=== PATIENT | male | born 1960 | race Caucasian/White ===

== ENCOUNTER 2017-03-17 11:40 | Inpatient (IN) | payer OTHER ==
[~2017-03-17] VITALS: Ht 180.3 cm; Wt 129.0 kg
[2017-03-17 12:24] LABS: BASOPHIL COUNT 0.1 K/uL (0-0.1); EOSINOPHIL (%) 0.8 % (0-5); EOSINOPHIL COUNT 0.1 K/uL (0-0.3); IMMATURE GRANULOCYTE (%) 0.6 % (0.0-0.7); IMMATURE GRANULOCYTE COUNT 0.1 K/uL; INSTRUMENT ABS NEUTROPHIL CT 8.7 K/uL; LYMPHOCYTE COUNT 1.3 K/uL (1.0-2.8); MCH 30.1 PG (29.0-34.0); MCHC 32.2 G/DL (30.0-36.0); MCV 93.4 FL (86-99); MONOCYTE (%) 13.2 % (3-12); MONOCYTE COUNT 1.6 K/uL (0-0.8); NEUTROPHIL (%) 73.9 % (45-76); NEUTROPHIL COUNT 8.7 K/uL (1.8-6.4); PLATELET COUNT 223 K/uL (156-360); RBC DIS.WIDTH-CV 16.9 % (11.8-14.6); RBC DIS.WIDTH-SD 57.2 % (39-53); RED BLOOD COUNT 4.82 M/uL (4.00-5.50); WHITE BLOOD COUNT 11.8 K/uL (4.1-10.2)
[2017-03-17 12:35] LABS: INTER. NORMALIZED RATIO 1.3; PROTHROMBIN TIME 13.6 (9.2-11.2)
[2017-03-17 12:37] LABS: CHLORIDE 108 mEq/L (99-109); POTASSIUM 5.2 mEq/L (3.7-5.4); SODIUM 139 mEq/L (136-147)
[2017-03-17 12:39] LABS: GLUCOSE 111 mg/dL (70-99)
[2017-03-17 12:41] LABS: ANION GAP 10 MEQ/L (2-14); TOTAL BILIRUBIN 1.3 mg/dL (0.0-1.0)
[2017-03-17 12:43] LABS: ALKALINE PHOSPHATASE 88 IU/L (3-129); GFR ESTIMATE (CALCULATED) > 59 mL/min/
[2017-03-17 12:44] LABS: UREA NITROGEN (BUN) 25 mg/dL (9-23)
[2017-03-17 12:46] LABS: TROP-I INTERPRETATION NEGATIVE; TROPONIN-I 0.01 ng/mL (0.0-0.30)
[2017-03-17 13:02] LABS: CARBON DIOXIDE (BICARBONATE) 23.5 MEQ/L (20-31)
[2017-03-17] MEDS ORDERED: SSD25GM TP (13:38)
[2017-03-17] MEDS ORDERED: SYMBICORT60 INHALAT IH (13:38)
[2017-03-17] MEDS ORDERED: SINGULAIR10 MG PO (13:39)
[2017-03-17] MEDS ORDERED: PROVENTIL,2.5 MG/3 M IH (13:39)
[2017-03-17] MEDS ORDERED: TOPROL XL50 MG PO (13:39)
[2017-03-17] MEDS ORDERED: DIOVAN160 MG PO (13:40)
[2017-03-17 17:57] VITALS: BP 131/82
[2017-03-17 20:00] VITALS: BP 92/60
[2017-03-17 21:17] VITALS: BP 108/61
[2017-03-17 22:30] VITALS: BP 108/71
[2017-03-17 23:32] VITALS: BP 114/79
[2017-03-18] VITALS (12 sets, daily range): BP systolic 93–169; BP diastolic 51–100
[2017-03-18 05:56] LABS: EOSINOPHIL (%) 1.1 % (0-5); EOSINOPHIL COUNT 0.1 K/uL (0-0.3); HEMATOCRIT 41.6 % (38.0-50.0); IMMATURE GRANULOCYTE (%) 0.6 % (0.0-0.7); IMMATURE GRANULOCYTE COUNT 0.1 K/uL; MCH 30.1 PG (29.0-34.0); MCHC 31.3 G/DL (30.0-36.0); MCV 96.3 FL (86-99); MEAN PLAT.VOLUME 11.7 uM^3 (9.0-12.4); MONOCYTE (%) 14.9 % (3-12); MONOCYTE COUNT 1.4 K/uL (0-0.8); NEUTROPHIL (%) 72.7 % (45-76); PLATELET COUNT 205 K/uL (156-360); RBC DIS.WIDTH-CV 17.1 % (11.8-14.6); RBC DIS.WIDTH-SD 60.2 % (39-53); RED BLOOD COUNT 4.32 M/uL (4.00-5.50); WHITE BLOOD COUNT 9.6 K/uL (4.1-10.2)
[2017-03-18 06:21] LABS: ANION GAP 8 MEQ/L (2-14); CHLORIDE 109 MEQ/L (99-109); GFR ESTIMATE (CALCULATED) > 59 mL/min/; GLUCOSE 98 mg/dL (70-99); POTASSIUM 5.2 MEQ/L (3.7-5.4); SAMPLE HEMOLYSIS CHECK 0; SAMPLE ICTERIC CHECK 0; SAMPLE LIPEMIA CHECK 0; SODIUM 140 MEQ/L (136-147); UREA NITROGEN (BUN) 27 mg/dL (9-23)
[2017-03-19 00:58] VITALS: BP 117/66
[2017-03-19 05:27] VITALS: BP 102/70
[2017-03-19 05:42] LABS: BASOPHIL COUNT 0.1 K/uL (0-0.1); EOSINOPHIL (%) 1.6 % (0-5); EOSINOPHIL COUNT 0.2 K/uL (0-0.3); HEMATOCRIT 39.8 % (38.0-50.0); IMMATURE GRANULOCYTE (%) 0.6 % (0.0-0.7); IMMATURE GRANULOCYTE COUNT 0.1 K/uL; INSTRUMENT ABS NEUTROPHIL CT 8.3 K/uL; LYMPHOCYTE COUNT 1.2 K/uL (1.0-2.8); MCH 31.2 PG (29.0-34.0); MCHC 31.9 G/DL (30.0-36.0); MCV 97.8 FL (86-99); MONOCYTE (%) 14.2 % (3-12); MONOCYTE COUNT 1.6 K/uL (0-0.8); NEUTROPHIL (%) 72.8 % (45-76); NEUTROPHIL COUNT 8.3 K/uL (1.8-6.4); PLATELET COUNT 187 K/uL (156-360); RBC DIS.WIDTH-CV 17.4 % (11.8-14.6); RBC DIS.WIDTH-SD 62.2 % (39-53); RED BLOOD COUNT 4.07 M/uL (4.00-5.50); WHITE BLOOD COUNT 11.4 K/uL (4.1-10.2)
[2017-03-19 06:14] LABS: ANION GAP 7 MEQ/L (2-14); CHLORIDE 110 MEQ/L (99-109); GFR ESTIMATE (CALCULATED) > 59 mL/min/; GLUCOSE 106 mg/dL (70-99); POTASSIUM 5.6 MEQ/L (3.7-5.4); SAMPLE HEMOLYSIS CHECK 0; SAMPLE ICTERIC CHECK 0; SAMPLE LIPEMIA CHECK 0; SODIUM 139 MEQ/L (136-147); UREA NITROGEN (BUN) 31 mg/dL (9-23)
[2017-03-19 08:00] VITALS: BP 93/64
[2017-03-19 08:47] LABS: BASE EXCESS -3.8 mEq/L (-3 to +3); BICARBONATE 24.1 mEq/L (22-26); CARBOXY HGB 2.6 % (0-5); METHEMOGLOBIN 1.3 % (0-1.5); PCO2 55 mm Hg (35-45); PO2 62 mm Hg (80-100)
[2017-03-19 08:48] LABS: pH 7.25 (7.35-7.45)
[2017-03-19 08:49] LABS: COMMENTS - BLOOD GASES A+C+; FI02 21 %; SITE RRA; TOTAL RESP RATE 18 resp/min
[2017-03-19 11:30] VITALS: BP 113/71
[2017-03-19 21:30] VITALS: BP 118/70
[2017-03-20] VITALS (7 sets, daily range): BP systolic 111–133; BP diastolic 55–76
[2017-03-20 06:50] LABS: EOSINOPHIL (%) 0.1 % (0-5); HEMATOCRIT 40.7 % (38.0-50.0); IMMATURE GRANULOCYTE (%) 0.3 % (0.0-0.7); LYMPHOCYTE COUNT 0.7 K/uL (1.0-2.8); MCH 29.8 PG (29.0-34.0); MCHC 30.7 G/DL (30.0-36.0); MCV 97.1 FL (86-99); MEAN PLAT.VOLUME 12.1 uM^3 (9.0-12.4); MONOCYTE (%) 12.4 % (3-12); MONOCYTE COUNT 1.1 K/uL (0-0.8); NEUTROPHIL (%) 78.8 % (45-76); PLATELET COUNT 175 K/uL (156-360); RBC DIS.WIDTH-CV 17.2 % (11.8-14.6); RBC DIS.WIDTH-SD 61.1 % (39-53); RED BLOOD COUNT 4.19 M/uL (4.00-5.50); WHITE BLOOD COUNT 8.9 K/uL (4.1-10.2)
[2017-03-20 07:20] LABS: ANION GAP 5 MEQ/L (2-14); CHLORIDE 110 MEQ/L (99-109); GFR ESTIMATE (CALCULATED) > 59 mL/min/; GLUCOSE 100 mg/dL (70-99); POTASSIUM 5.3 MEQ/L (3.7-5.4); SAMPLE HEMOLYSIS CHECK 0; SAMPLE ICTERIC CHECK 0; SAMPLE LIPEMIA CHECK 0; SODIUM 139 MEQ/L (136-147); UREA NITROGEN (BUN) 22 mg/dL (9-23)
[2017-03-21 04:00] VITALS: BP 122/74
[2017-03-21 06:00] LABS: EOSINOPHIL (%) 0.7 % (0-5); EOSINOPHIL COUNT 0.1 K/uL (0-0.3); HEMATOCRIT 40.6 % (38.0-50.0); IMMATURE GRANULOCYTE (%) 0.6 % (0.0-0.7); IMMATURE GRANULOCYTE COUNT 0.1 K/uL; INSTRUMENT ABS NEUTROPHIL CT 7.3 K/uL; LYMPHOCYTE COUNT 1.2 K/uL (1.0-2.8); MCH 31.2 PG (29.0-34.0); MCV 97.4 FL (86-99); MEAN PLAT.VOLUME 12.1 uM^3 (9.0-12.4); MONOCYTE (%) 12.7 % (3-12); MONOCYTE COUNT 1.3 K/uL (0-0.8); NEUTROPHIL (%) 73.4 % (45-76); NEUTROPHIL COUNT 7.3 K/uL (1.8-6.4); PLATELET COUNT 167 K/uL (156-360); RBC DIS.WIDTH-CV 17.2 % (11.8-14.6); RBC DIS.WIDTH-SD 61.1 % (39-53); RED BLOOD COUNT 4.17 M/uL (4.00-5.50); WHITE BLOOD COUNT 9.9 K/uL (4.1-10.2)
[2017-03-21 06:28] LABS: ANION GAP 6 MEQ/L (2-14); CHLORIDE 107 MEQ/L (99-109); GFR ESTIMATE (CALCULATED) > 59 mL/min/; GLUCOSE 87 mg/dL (70-99); POTASSIUM 5.2 MEQ/L (3.7-5.4); SAMPLE HEMOLYSIS CHECK 0; SAMPLE ICTERIC CHECK 0; SAMPLE LIPEMIA CHECK 0; SODIUM 140 MEQ/L (136-147); UREA NITROGEN (BUN) 18 mg/dL (9-23)
[2017-03-21 09:00] VITALS: BP 123/62
[2017-03-21 11:00] VITALS: BP 120/59
[2017-03-21 15:33] VITALS: BP 132/63
[2017-03-21 20:00] VITALS: BP 111/64
[2017-03-21 23:45] VITALS: BP 125/62
[2017-03-22 04:45] VITALS: BP 127/69
[2017-03-22 07:09] LABS: ANION GAP 6 MEQ/L (2-14); CHLORIDE 104 MEQ/L (99-109); GFR ESTIMATE (CALCULATED) > 59 mL/min/; GLUCOSE 88 mg/dL (70-99); POTASSIUM 4.7 MEQ/L (3.7-5.4); SAMPLE HEMOLYSIS CHECK 0; SAMPLE ICTERIC CHECK 0; SAMPLE LIPEMIA CHECK 0; SODIUM 140 MEQ/L (136-147); UREA NITROGEN (BUN) 16 mg/dL (9-23)
[2017-03-22 07:27] VITALS: BP 135/77
[2017-03-22 11:45] VITALS: BP 111/72
[2017-03-22] MEDS ORDERED: LOSARTAN POTASS25 MG PO (12:35)
[2017-03-22] MEDS ORDERED: LASIX40 MG PO (12:35)
[2017-03-22] MEDS ORDERED: KEFLEX500 MG PO (12:35)
[2017-03-22] MEDS ORDERED: PREDNISONE10 MG PO (12:35)
[2017-03-22] MEDS ORDERED: LOPRESSOR50 MG PO (12:35)
[2017-03-22] MEDS ORDERED: CARDIZEM CD,CA240 MG PO (12:35)
[2017-03-22] MEDS ORDERED: XARELTO20 MG PO (12:35)
== END 2017-03-22 14:14 | disposition home or self-care (01) | DRG 292 ==
LOC: EME 11:40 → 4EAST 12:31 → EDOF 12:31 → 4EAST 17:11
PROVIDERS: Family Medicine; Internal Medicine Pulmonary Disease; Physician Assistant
DX: I50.30 Unspecified diastolic (congestive) heart failure (principal); I48.91 Unspecified atrial fibrillation; L03.115 Cellulitis of right lower limb; J44.1 Chronic obstructive pulmonary disease with (acute) exacerbation; E66.2 Morbid (severe) obesity with alveolar hypoventilation; I73.9 Peripheral vascular disease, unspecified; L97.919 Non-pressure chronic ulcer of unspecified part of right lower leg with unspecified severity; M79.89 Other specified soft tissue disorders; F17.200 Nicotine dependence, unspecified, uncomplicated; I27.2 Other secondary pulmonary hypertension; I11.0 Hypertensive heart disease with heart failure; L02.419 Cutaneous abscess of limb, unspecified; I87.8 Other specified disorders of veins; I83.018 Varicose veins of right lower extremity with ulcer other part of lower leg; L97.819 Non-pressure chronic ulcer of other part of right lower leg with unspecified severity; R09.02 Hypoxemia; E87.2 Acidosis; Z91.19 Patient's noncompliance with other medical treatment and regimen; Z68.39 Body mass index [BMI] 39.0-39.9, adult
CPT/HCPCS: 36600; 71020; 80048; 80053; 80202; 82803; 83605; 83880; 84484; 85025; 85610; 85730; 87040; 93005; 93306; 93926; 93971; 94640; 94640 76; 94660; 94799; 99202; 99281; 99285; A6212; J0690; J1160; J1650; J1940; J3370; J7050; J7120; J7512

== ENCOUNTER → 2017-08-18 | Outpatient (CLI) | payer OTHER ==
[~2017-08-18] MED LIST: CARDIZEM CD,CA240 MG PO; DIOVAN160 MG PO; KEFLEX500 MG PO; LASIX40 MG PO; LOPRESSOR50 MG PO; LOSARTAN POTASS25 MG PO; PREDNISONE10 MG PO; PROVENTIL,2.5 MG/3 M IH; SINGULAIR10 MG PO; SSD25GM TP; SYMBICORT60 INHALAT IH; TOPROL XL50 MG PO; XARELTO20 MG PO
== END | disposition home or self-care (01) ==
LOC: CDC 10:20
DX: Z01.810 Encounter for preprocedural cardiovascular examination (principal); I48.91 Unspecified atrial fibrillation; R94.31 Abnormal electrocardiogram [ECG] [EKG]
CPT/HCPCS: 93000